=== PATIENT | male | born 1990 | race African-American/Black ===

== ENCOUNTER 2019-05-21 12:07 | Emergency (ER) | payer SELFPAY ==
[~2019-05-21] VITALS: Ht 177.8 cm; Wt 69.0 kg
[2019-05-21 12:13] VITALS: BP 124/84
== END 2019-05-21 12:20 | disposition left against medical advice (07) ==
LOC: ER 12:07
DX: Z53.21 Procedure and treatment not carried out due to patient leaving prior to being seen by health care provider (principal)